=== PATIENT | female | born 1940 | race Caucasian/White ===

== ENCOUNTER 2022-10-13 17:38 | Outpatient (CLI) | payer MEDICARE, SELFPAY ==
--- NOTE | ~2022-10-13 | MR_ITS ---
EXAMINATION: MR shoulder RT wo con DATE: 10/14/2022 08:57 INDICATION: Right shoulder pain, unspecified chronicity. TECHNIQUE: Magnetic resonance imaging (MRI) of the right shoulder was performed without intravenous c ontrast. Sequences included axial PD-weighted FS FSE, coronal oblique PD-weighted FS FSE and T2-weigh lizet FS FSE, and sagittal oblique T2-weighted FS FSE and T1-weighted FSE. COMPARISON: None. FINDINGS: Coracoacromial arch: The acromion undersurface is curved in morphology (type II). There is severe acromioclavicular joint osteoarthritis. There is severe subacromial/subdeltoid bursitis. Rotator cuff: There is a full-thickness tear of supraspinatus and infraspinatus tendons measuring 2.6 cm anterior t o posterior by 2.0 cm proximal to distal. There is severe supraspinatus and infraspinatus tendinopath y. There is mild teres minor tendinopathy. There is severe subscapularis tendinopathy with full-thick ness tear. There is edema in subscapularis muscle belly, which may be strain or subacute denervation. There is mild fatty atrophy of the rotator cuff muscle bellies, worst in subscapularis muscle. Biceps tendon and glenoid labrum: Biceps tendon is in bicipital groove. There is severe tendinopathy and at least partial tear of bicep s tendon. There is maceration of the glenoid labrum. Fluid: There is a large glenohumeral joint effusion. Bones/cartilage: There is extensive full-thickness cartilage loss of glenoid and humeral head with bone volume loss an d osteophytes. IMPRESSION: 1. Advanced glenohumeral joint osteoarthritis. 2. Full-thickness rotator cuff tears. Increased signal in subscapularis muscle belly may be strain or subacute denervation. 3. Severe acromioclavicular joint osteoarthritis. 4. Severe tendinopathy and at least partial tear of biceps tendon. 5. Large glenohumeral joint effusion and severe subacromial/subdeltoid bursitis. Reviewed, dictated and finalized at location A. IMPRESSION: 1. Advanced glenohumeral joint osteoarthritis. 2. Full-thickness rotator cuff tears. Increased signal in subscapularis muscle belly may be strain or subacute denervation. 3. Severe acromioclavicular joint osteoarthritis. 4. Severe tendinopathy and at least partial tear of biceps tendon. 5. Large glenohumeral joint effusion and severe subacromial/subdeltoid bursitis .
== END 2022-10-13 17:39 | disposition home or self-care (01) ==
PROVIDERS: Visit Provider Physician Assistant
DX: M19.011 Primary osteoarthritis, right shoulder (principal); M75.51 Bursitis of right shoulder
CPT/HCPCS: 73221